=== PATIENT | female | born 1980 | race Caucasian/White ===

== ENCOUNTER 2017-09-15 16:34 | Outpatient (CLI) | payer OTHER ==
[~2017-09-15] VITALS: Ht 160 cm; Wt 91.5 kg
[~2017-09-15 16:34] MED LIST: FERR325C PO; PREN1TAB62 PO
[2017-09-15 16:48] VITALS: Ht 160 cm; Wt 91.5 kg
[2017-09-15 16:53] VITALS: BP 95/63; PULSE 82; RESP 18
--- NOTE | 2017-09-15 17:39 | RADRPT ---
PROCEDURE: US OB. CLINICAL INDICATION: Uncertain size and dates. TECHNIQUE: Multiple sonographic images of the uterus were obtained. The images were revi ewed on a PACS workstation. COMPARISON: No prior studies are available for comparison. FINDINGS: There is a single live intrauterine gestation. heart rate is 132 beats per minute. Measurements were made in order to determine age. The results are as follows: BPD = 8.52 cm. HC = 31.37 cm. AC = 30.36 cm. FL = 6.39 cm. Estimated weight is 2334 +/- 350 grams. LMP growth percentile is 30%. Menstrual age by ultrasound dates is 34 weeks 1 day. The estimated date of delivery is 10/26/2017. Position is cephalic and placenta is anterior grade II. There is no evidence for an abruption or ru centa previa. IMPRESSION: 1. Single live intrauterine gestation of 34 weeks 1 day menstrual age by ultrasound dates. 2. The estimated date of delivery is 10/26/2017. RPTAT: QQ .Yaw Mauro MD, Date Time Electronically viewed and signed by .Yaw Mauro MD, on 09/15/2017 17:38 .R/
--- NOTE | 2017-09-15 17:42 | RADRPT ---
PROCEDURE: US biophysical profile. CLINICAL INDICATION: Decreased motion. TECHNIQUE: Multiple sonographic images of the uterus were obtained. The images were revi ewed on a PACS workstation. COMPARISON: No prior studies are available for comparison. FINDINGS: There is a single live intrauterine gestation. heart rate is 141 beats per minute. The position is cephalic. The placenta is anterior grade II with no abruption or previa. The RAUL is 17.8 cm. (Normal = 5-20 cm.) Breathing Movement: 2 Gross Body Movement: 2 Tone: 2 Qualitative Amniotic Fluid Volume: 2 TOTAL: 8 IMPRESSION: 1. The biophysical score is 8/8. RPTAT: QQ .Yaw Mauro MD, MD Date Time Electronically viewed and signed by .Yaw Mauro MD, on 09/15/2017 17:41 .R/
--- NOTE | 2017-09-15 17:58 | PN ---
Triage Information Date/Time Reason for visit: Weeks of Gestation 34w 4d /Para Objective Vital Signs Date Time Temp Pulse Resp B/P Pulse Ox O2 Delivery O2 Flow Rate FiO2 09/15/17 16:53 98.4 82 18 95/63 Room Air Heart Rate Comments reactive Contractions: None Results/Medications Imaging Results BPP 8/, RAUL 17.8cm, EFW 2234g Disposition: Discharge DEBBY PADILLA Sep 15, 2017 17:58
--- NOTE | 2017-09-15 18:20 | TRIAGE ---
OB Triage Datetime Report Generated by CPN: 09/15/2017 18:20 Datetime: 09/15/2017 17:53 Stage of : OB Triage Datetime: 09/15/2017 17:00 Labor Evaluation Frequency: OCCAS Monitor Mode: External Duration (sec)2399: 60-80 Quality: Mild Pattern: Normal: <= 5 Contractions in 10 Minutes Resting Tone [place]: Relaxed Heart Rate FHR Baseline Rate: 140 Monitor Mode: External US Variability: Moderate 6-25 bpm Accelerations: 15X15 Decelerations: None Category: Category I Datetime: 09/15/2017 16:59 Assessment Type: Admission Assessment Maternal Assessment Level of Consciousness: Fully Conscious DTR's/Clonus: DTRs 2+; No Clonus Headache: Denies Blurred Vision: No Respiratory Effort: Unlabored; Regular Rhythm; Equal Expansion Breath Sounds, Left: Clear and Equal Breath Sounds, Right: Clear and Equal Nausea/Vomiting: Denies RUQ Epigastric Pain: Denies Lower Extremities Edema: None Degree: None Upper Extremities Edema: None Degree: None Facial Edema: None Fall Risk Assessment History of Falling: (0) No Secondary Diagnosis: (0) No Ambulatory Aid: (0) Bedrest/Nurse Assist IV Therapy: (0) No Gait: (0) Normal/Bedrest/Immobile Mental Status: (0) Oriented to Own Ability Fall Score: 0 Fall Risk Score Definition: No Risk: No action required Datetime: 09/15/2017 16:58 EGA: 34.4 Datetime: 09/15/2017 16:56 Time of Arrival: 09/15/2017 16:27 Arrived By: Ambulatory Arrived From: Dr. Lin Chief Complaint: well being Movement: Present Contractions: Denies/Absent Rupture of Membranes: Denies Vaginal Bleeding: None Vaginal Discharge: Denies Recent Sexual Intercouse: Denies Abdominal Trauma: Not Applicable Patient Complaints: Other Time Provider Notified: 09/15/2017 17:53 Provider Notified: paris Initial Plan: RAUL DAVILA
== END 2017-09-15 18:00 | disposition home or self-care (01) ==
LOC: OBT 16:34 → L-D 16:36 → OBT 18:00
PROVIDERS: ATTEND Obstetrics & Gynecology
DX: O09.523 Supervision of elderly multigravida, third trimester (principal); Z3A.34 34 weeks gestation of pregnancy
CPT/HCPCS: 76815; 76818; Z7500; G0463

== ENCOUNTER 2017-10-15 16:38 | Outpatient (CLI) | END 2017-10-15 20:50 | disposition home or self-care (01) ==

== ENCOUNTER 2017-10-30 16:34 | Inpatient (IN) | END 2017-11-02 16:22 | disposition home or self-care (01) | DRG 775 ==